=== PATIENT | female | born 1950 | race Caucasian/White ===

== ENCOUNTER 2016-10-18 11:51 | Day surgery (SDC) | payer BC ==
--- NOTE | 2016-10-16 15:45 | HP ---
PROCEDURE DATE: 10/18/16 HISTORY OF PRESENT ILLNESS: The patient is a 66 y/o with 4 episodes of right upper quadrant pain lasting 2-4 hours, some nausea, and occasional vomiting. No change in bowel movements. No liver problems or jaundice. Ultrasound reportedly showed she had cholelithiasis apparently done on 09/16/16. PAST MEDICAL HISTORY: Some hypertension. CURRENT MEDICATIONS: Hydrochlorothiazide, lisinopril, fluticasone propionate. ALLERGIES: NKDA. PAST SURGICAL HISTORY: Had hysterectomy. She also had thyroid surgery in the past. FAMILY HISTORY: Negative. SOCIAL HISTORY: No smoking or alcohol abuse. REVIEW OF SYSTEMS: 12 systems reviewed per admission assessment. No chest pains or palpitations. Other systems negative or noncontributory other than above and per preadmission questionnaire. PHYSICAL EXAMINATION: GENERAL: No acute distress. HEENT: Sclerae nonicteric. NECK: No JVD. CHEST: Clear to auscultation. CVS: Regular rate and rhythm. ABDOMEN: Soft. Some mild tenderness in right upper quadrant. No peritoneal signs. EXTREMITIES: No significant edema. NEURO: A&O, moving extremities symmetrically. No gross motor deficits noted. IMPRESSION: 1. SYMPTOMATIC CHOLELITHIASIS, PROBABLE CHRONIC CHOLECYSTITIS. [place] the patient would benefit from cholecystectomy. Risks and benefits explained in detail, but not limited to, bleeding; infection; risk of trocar injury or hernia; small risk of bowel, bladder, or blood vessel injury; small risk of bile leak, bile duct injury, or retained stone or sludge possibly requiring further procedures either open or endoscopic retrograde cholangiopancreatography; general risk of anesthesia, deep vein thrombosis, pulmonary embolism, or pneumonia; perioperative risks of aches, pains, bloating, constipation and/or loose stools possibly chronic in nature. She understands all of the above, but not limited to as well as the possibility that the procedure may not improve her symptoms and she may need further work-up and/or testing. Will proceed with laparoscopic cholecystectomy, possible open as an outpatient.
[~2016-10-18 11:51] MED LIST: APRESOLINE 20 MG/ML INJ IV ONE; BRIDION 200MG/2ML IV ONE; DIPRIVAN 200 MG/20 ML IV ONE; Hydromorphone 1 mg/ml Ampule IJ ONE; Lactated Ringers 1,000 ML IV ONE; Quelicin Fliptop 200 MG/10 ML IJ ONE; SUBLIMAZE 250 MCG/5 ML IJ ONE; Sensorcaine 0.25% 10 ML ONE; TORAdol 30 mg Injection IJ ONE; TRANDATE 20 MG/5 ML SYRINGE IV ONE; Versed 2 MG/2 ML Injection IV ONE; Zemuron 100 MG/10 ML IJ ONE; Zofran 4 MG/2 ML VIAL IV ONE
[2016-10-18] MEDS ORDERED: MEFOXIN 2 GM PREMIX** 50 ML IV ONE ×2 (12:07→12:08)
[2016-10-18] MEDS ORDERED: Lactated Ringers 0 ML IV ONE (12:08)
[2016-10-18] MEDS ORDERED: Lactated Ringers 1,000 ML IV SCH (12:30)
[2016-10-18] MEDS ORDERED: DEMEROL 50 MG ONE (13:44)
[2016-10-18] MEDS ORDERED: SUBLIMAZE 100 MCG/2 ML ONE (13:51)
--- NOTE | 2016-10-18 15:36 | OP ---
SURGERY DATE/TIME: 10/18/2016 1245 PREOPERATIVE DIAGNOSIS: Symptomatic cholelithiasis, chronic cholecystitis. POSTOPERATIVE DIAGNOSIS: Symptomatic cholelithiasis, chronic cholecystitis. PROCEDURE: Laparoscopic cholecystectomy. SURGEON: Dr. Mk Haney. ANESTHESIA: General. ESTIMATED BLOOD LOSS: Minimal. INDICATIONS: As noted above. Risks and benefits explained in detail but not limited to and consent obtained. DESCRIPTION OF PROCEDURE AND FINDINGS: The patient was taken to the OR. General anesthesia was induced. Abdomen prepped and draped in the usual sterile fashion. After official time out and no disagreement with planned procedure, a transverse incision made at the supraumbilical area. Fascia grasped and pulled upward. Veress needle inserted and tested with saline. Pneumoperitoneum accomplished insufflating opening pressure of 0-15. An 11 mm bladeless port and camera were inserted without difficulty followed by two - 5 mm right upper quadrant ports and 5 epigastric port. The gallbladder is grasped and retracted over the edge of the liver and laterally away from Calot's triangle. Dissection carried posterior, lateral to anterior fashion. The cystic artery, cystic duct and infundibular area was slowly carefully well skeletonized until critical view was obtained both anteriorly and posteriorly. Once this was accomplished cystic duct was then clipped x3 and divided in the usual fashion as well as cystic artery clipped x3 and divided in usual fashion. Directly adjacent to the gallbladder showed extensive chronic inflammatory reaction that was quite vascular. It required clipping additional oozing side branches off the cystic artery directly on the gallbladder wall. Staying directly on the gallbladder wall with slow careful dissection accomplished. Clipping oozing side branches as necessary. Just prior to releasing from final attachments to the anterior edge of the liver the liver bed re-inspected. Clips noted to be in place in cystic duct and cystic artery stumps. There were no signs of any active bleeding or bile leakage. It was felt there is no benefit of drain placement as the clips are noted to be in place in cystic duct and cystic artery stumps. Gallbladder is released from its final attachment to anterior edge of the liver, placed in Pleatman sac pulled up into the epigastrium. As necessary did enlarge the fascial defect slightly with a clamp to allow the gallbladder and Pleatman sac to be pulled free and passed off and this was accomplished. It should be noted the skin split level making the incision 2 to 2.5 times what it started out at the umbilical area. Otherwise the liver bed re-inspected. Clips noted to be in place in cystic duct and cystic artery stumps. There were no signs of any active bleeding or bile leakage. It was felt there was no benefit from drain placement. Copious amount of irrigation irrigating lateral to liver and subhepatic space irrigating until clear. Clips noted to be in place in cystic duct and cystic artery stumps. There were no signs of any active bleeding or bile leakage. I felt there was no benefit in drain placement. At this point the fascial defect 10/11 port site at the supraumbilical area was closed with puncture closure device under direct vision with the camera with #1 Vicryl. Pneumoperitoneum decompressed. The wound was irrigated out. Skin incision closed with 4-0 Vicryl. Steri-Strips and sterile dressing applied. 0.25% Marcaine local injected along the skin incision fascial defect. The patient tolerated the procedure well. There were no immediate complications. Findings discussed with the family out in the waiting area. She was transferred to the recovery room in stable condition.
[2016-10-18 16:05] VITALS: O2SAT 99
[2016-10-18 16:44] VITALS: BP 129/59; PULSE 78
== END 2016-10-18 16:15 | disposition home or self-care (01) ==
LOC: SDC 11:51
PROVIDERS: ATTEND Surgery
PROC: 0FT44ZZ Resection of Gallbladder, Percutaneous Endoscopic Approach (ICD-10-PCS; principal; 2016-10-18)
DX: K80.10 Calculus of gallbladder with chronic cholecystitis without obstruction (principal); I10 Essential (primary) hypertension; Z79.899 Other long term (current) drug therapy
CPT/HCPCS: 00790; 36415; 88304; 88305; 93005; J0330; J0360; J0694; J1170; J1885; J2175; J2250; J2405; J2704; J3010